=== PATIENT | female | born 1955 | race Caucasian/White ===

== ENCOUNTER 2017-09-03 12:41 | Inpatient (IN) | payer BC ==
[~2017-09-03] VITALS: Ht 172.7 cm; Wt 81.7 kg
[2017-09-03] MEDS ORDERED: FAMOTIDINE 20 MG/2 ML IVP ONE (13:30)
[2017-09-03] MEDS ORDERED: SODIUM CHLORIDE FLUSH 10ML SYR IVF ONE (13:30)
[2017-09-03 14:25] LABS: HEMATOCRIT 45.9 % (34.6-47.8); HEMOGLOBIN 15.4 g/dL (11.7-16.4)
[2017-09-03 14:34] LABS: BLOOD UREA NITROGEN 18 mg/dL (7-18)
[2017-09-03 14:38] LABS: ASPARTATE AMINO TRANSFERASE 14 U/L (15-37)
[2017-09-03 14:51] LABS: IS PT STATUS REG ER OR PRE ER? YES
[2017-09-03] MEDS ORDERED: POTASSIUM CHLORIDE 40 MEQ in SODIUM CHLORIDE 0.9% 500 ML IV ONE (15:30)
[2017-09-03] MEDS ORDERED: OMNIPAQUE 350 MG/ML, 100ML BOTTLE ONE (16:11)
[2017-09-03] MEDS ORDERED: CEFTRIAXONE 1,000 MG in SODIUM CHLORIDE 0.9% 50 ML IV ONE (17:00)
[2017-09-03] MEDS ORDERED: SODIUM CHLORIDE 0.9% 1,000ML IVBOLUS ONE (17:00)
[2017-09-03] MEDS ORDERED: SODIUM CHLORIDE 0.9% 1,000 ML IV SCH (17:11)
[2017-09-03] MEDS ORDERED: POTASSIUM CHLORIDE 20 MEQ TAB.ER.PRT PO ONE ×2 (17:30→22:00)
[2017-09-03] MEDS ORDERED: LORazepam 2 MG/ML, 1ML IV PRN ×2 (17:30)
[2017-09-03] MEDS ORDERED: ONDANSETRON ODT 4 MG PO PRN (17:30)
[2017-09-03] MEDS ORDERED: ONDANSETRON 2MG/ML, 2ML IVPush PRN (17:30)
[2017-09-03] MEDS ORDERED: LABETALOL 5MG/ML, 20ML IVPush PRN (17:30)
[2017-09-03] MEDS ORDERED: CEFTRIAXONE 1,000 MG in SODIUM CHLORIDE 0.9% 50 ML IV SCH (17:30)
[2017-09-03] MEDS ORDERED: LORazepam 1MG TABLET PO PRN ×2 (17:30)
[2017-09-03] MEDS ORDERED: GUAIFENESIN/DM 200-20MG, 10ML UDC PO PRN (17:30)
[2017-09-03] MEDS ORDERED: LORazepam 0.5MG TABLET PO PRN (17:30)
[2017-09-03] MEDS ORDERED: morphine SULFATE 10 MG/ML, 1ML IVPush PRN (17:30)
[2017-09-03] MEDS ORDERED: POLYETHYLENE GLYCOL 17 GM PACKET PO PRN (17:30)
[2017-09-03] MEDS ORDERED: MAALOX/HYOSCYAMINE/LIDOCAINE 45 ML BTL PO ONE (18:00)
[2017-09-03 18:04] VITALS: BP 130/93
[2017-09-03 18:43] VITALS: BP 123/86
[2017-09-03 20:24] LABS: BLOOD UREA NITROGEN 15 mg/dL (7-18)
[2017-09-03] MEDS: POTASSIUM CHLORIDE 20 MEQ, MAGNESIUM SULFATE 1 GM, THIAMINE 100 MG, MVI ADULT 10 ML in ... IV SCH (20:45)
[2017-09-03] MEDS: LORazepam 2 MG/ML, 1ML IV PRN (20:46)
[2017-09-03] MEDS: ENOXAPARIN 40 MG/0.4 ML SQ SCH (20:46)
[2017-09-03 21:56] VITALS: BP 123/86
[2017-09-04 01:08] VITALS: BP 124/82
[2017-09-04] MEDS: LORazepam 2 MG/ML, 1ML IV PRN ×6 (01:17→23:43)
[2017-09-04] MEDS ORDERED: LORazepam 2 MG/ML, 1ML ONE ×2 (04:26→06:33)
[2017-09-04 07:53] VITALS: BP 119/80
[2017-09-04] MEDS ORDERED: MAGNESIUM SULFATE PMX 2GM/50ML 50 ML IV ONE (08:00)
[2017-09-04 08:52] LABS: HEMATOCRIT 40.4 % (34.6-47.8); HEMOGLOBIN 13.6 g/dL (11.7-16.4); WHITE BLOOD COUNT 9.2 x10^3/uL (3.4-10)
[2017-09-04] MEDS: FOLIC ACID 1 MG TABLET PO SCH (09:00)
[2017-09-04] MEDS: SENNA/DOCUSATE TABLET PO SCH (09:00)
[2017-09-04] MEDS: PANTOPRAZOLE 40 MG IV IVPush SCH (09:37)
[2017-09-04] MEDS ORDERED: CHLORDIAZEPOXIDE 5 MG CAPSULE PO PRN (11:00)
[2017-09-04] MEDS ORDERED: CHLORDIAZEPOXIDE 10 MG CAPSULE PO PRN (11:30)
[2017-09-04] MEDS ORDERED: CHLORDIAZEPOXIDE 10 MG CAPSULE PO ONE (12:00)
[2017-09-04 13:53] VITALS: BP 122/82
[2017-09-04] MEDS: CHLORDIAZEPOXIDE 5 MG CAPSULE PO SCH ×3 (16:00→21:00)
[2017-09-04] MEDS ORDERED: SODIUM CHLORIDE 0.9% 1,000 ML IV SCH (17:11)
[2017-09-04] MEDS ORDERED: CEFTRIAXONE PMX 1GM/50ML 50 ML IV SCH (17:30)
[2017-09-04] MEDS: POTASSIUM CHLORIDE 20 MEQ, MAGNESIUM SULFATE 1 GM, THIAMINE 100 MG, MVI ADULT 10 ML in ... IV SCH (18:22)
[2017-09-04] MEDS: ENOXAPARIN 40 MG/0.4 ML SQ SCH (20:00)
[2017-09-04 21:42] VITALS: BP 122/85
[2017-09-05] MEDS: LORazepam 2 MG/ML, 1ML IV PRN ×10 (00:52→22:35)
[2017-09-05 01:47] VITALS: BP 120/80
[2017-09-05 06:03] LABS: HEMATOCRIT 38.3 % (34.6-47.8); HEMOGLOBIN 12.9 g/dL (11.7-16.4); WHITE BLOOD COUNT 8.7 x10^3/uL (3.4-10)
[2017-09-05 06:35] LABS: ASPARTATE AMINO TRANSFERASE 9 U/L (15-37); BLOOD UREA NITROGEN 8 mg/dL (7-18)
[2017-09-05 07:38] VITALS: BP 126/84
[2017-09-05] MEDS: PANTOPRAZOLE 40 MG IV IVPush SCH (08:21)
[2017-09-05] MEDS: CHLORDIAZEPOXIDE 5 MG CAPSULE PO SCH ×3 (08:22→20:06)
[2017-09-05] MEDS: SENNA/DOCUSATE TABLET PO SCH (08:23)
[2017-09-05] MEDS: FOLIC ACID 1 MG TABLET PO SCH (08:24)
[2017-09-05] MEDS ORDERED: POTASSIUM CHLORIDE 20 MEQ TAB.ER.PRT PO ONE ×2 (10:30)
[2017-09-05] MEDS: NS + 20MEQ KCL 1,000 ML IV SCH ×2 (12:16→21:00)
[2017-09-05 12:39] VITALS: BP 115/74
[2017-09-05] MEDS: QUETIAPINE 25MG TABLET PO SCH ×2 (17:10→20:06)
[2017-09-05] MEDS ORDERED: SODIUM CHLORIDE 0.9% 1,000 ML IV SCH (17:11)
[2017-09-05 19:51] VITALS: BP 106/75
[2017-09-05] MEDS: ENOXAPARIN 40 MG/0.4 ML SQ SCH (20:05)
[2017-09-05] MEDS ORDERED: QUETIAPINE 25MG TABLET PO SCH (21:00)
[2017-09-06 04:21] VITALS: BP 129/83
[2017-09-06 06:40] VITALS: BP 112/72
[2017-09-06] MEDS: SENNA/DOCUSATE TABLET PO SCH (07:14)
[2017-09-06] MEDS: QUETIAPINE 25MG TABLET PO SCH ×2 (08:10→20:17)
[2017-09-06] MEDS: NS + 20MEQ KCL 1,000 ML IV SCH (08:10)
[2017-09-06] MEDS: CHLORDIAZEPOXIDE 5 MG CAPSULE PO SCH ×2 (08:10→20:17)
[2017-09-06] MEDS: PANTOPRAZOLE 40 MG IV IVPush SCH (08:10)
[2017-09-06] MEDS: HYDROcodone/APAP 5/325 TABLET PO PRN ×2 (08:25→17:06)
[2017-09-06 10:47] LABS: HEMATOCRIT 38.4 % (34.6-47.8); HEMOGLOBIN 12.8 g/dL (11.7-16.4); WHITE BLOOD COUNT 7.4 x10^3/uL (3.4-10)
[2017-09-06 10:54] LABS: BLOOD UREA NITROGEN 9 mg/dL (7-18)
[2017-09-06 10:58] LABS: ASPARTATE AMINO TRANSFERASE 12 U/L (15-37)
[2017-09-06] MEDS: SODIUM CHLORIDE 0.45% 1,000 ML IV SCH ×2 (11:40→20:23)
[2017-09-06 12:30] VITALS: BP 117/74
[2017-09-06] MEDS: ENOXAPARIN 40 MG/0.4 ML SQ SCH (20:17)
[2017-09-06 20:35] VITALS: BP 118/82
[2017-09-07] MEDS: HYDROcodone/APAP 5/325 TABLET PO PRN ×5 (00:31→19:50)
[2017-09-07 01:15] VITALS: BP 121/82
[2017-09-07 05:41] LABS: HEMATOCRIT 38.5 % (34.6-47.8); HEMOGLOBIN 12.9 g/dL (11.7-16.4)
[2017-09-07] MEDS: SODIUM CHLORIDE 0.45% 1,000 ML IV SCH ×2 (05:50→16:06)
[2017-09-07 06:00] LABS: ASPARTATE AMINO TRANSFERASE 9 U/L (15-37); BLOOD UREA NITROGEN 6 mg/dL (7-18)
[2017-09-07 06:48] VITALS: BP 114/76
[2017-09-07] MEDS: SENNA/DOCUSATE TABLET PO SCH ×2 (08:15→08:18)
[2017-09-07] MEDS: PANTOPRAZOLE 40 MG IV IVPush SCH (08:15)
[2017-09-07] MEDS: CHLORDIAZEPOXIDE 5 MG CAPSULE PO SCH (08:15)
[2017-09-07] MEDS: QUETIAPINE 25MG TABLET PO SCH ×2 (08:15→19:50)
[2017-09-07 12:26] VITALS: BP 128/82
[2017-09-07] MEDS: ENOXAPARIN 40 MG/0.4 ML SQ SCH (19:49)
[2017-09-07 20:00] VITALS: BP 110/74
[2017-09-08 02:00] VITALS: BP 113/75
[2017-09-08 05:19] LABS: HEMATOCRIT 38.9 % (34.6-47.8); HEMOGLOBIN 13.2 g/dL (11.7-16.4); WHITE BLOOD COUNT 6.3 x10^3/uL (3.4-10)
[2017-09-08] MEDS: HYDROcodone/APAP 5/325 TABLET PO PRN ×4 (05:19→21:47)
[2017-09-08 05:29] LABS: BLOOD UREA NITROGEN 6 mg/dL (7-18)
[2017-09-08 06:45] VITALS: BP 115/78
[2017-09-08] MEDS: PANTOPRAZOLE 40 MG IV IVPush SCH (07:58)
[2017-09-08] MEDS: SENNA/DOCUSATE TABLET PO SCH (07:58)
[2017-09-08] MEDS: QUETIAPINE 25MG TABLET PO SCH ×2 (07:58→21:47)
[2017-09-08] MEDS ORDERED: POTASSIUM CHLORIDE 20 MEQ TAB.ER.PRT PO ONE ×2 (08:30→19:00)
[2017-09-08] MEDS ORDERED: MAGNESIUM SULFATE PMX 2GM/50ML 50 ML IV ONE ×2 (08:30→19:00)
[2017-09-08] MEDS ORDERED: CHLORDIAZEPOXIDE 5 MG CAPSULE PO SCH (09:00)
[2017-09-08] MEDS: SODIUM CHLORIDE 0.45% 1,000 ML IV SCH ×2 (09:35→21:47)
[2017-09-08] MEDS ORDERED: SODIUM CHLORIDE 0.45% 1,000 ML IV SCH (11:30)
[2017-09-08 12:30] VITALS: BP 99/65
[2017-09-08 20:33] VITALS: BP 118/81
[2017-09-08] MEDS: ENOXAPARIN 40 MG/0.4 ML SQ SCH (21:47)
[2017-09-09 03:25] VITALS: BP 119/87
[2017-09-09] MEDS: HYDROcodone/APAP 5/325 TABLET PO PRN ×5 (03:37→23:10)
[2017-09-09 05:18] LABS: HEMATOCRIT 37.2 % (34.6-47.8); HEMOGLOBIN 12.5 g/dL (11.7-16.4); WHITE BLOOD COUNT 4.5 x10^3/uL (3.4-10)
[2017-09-09 05:20] LABS: BLOOD UREA NITROGEN 5 mg/dL (7-18)
[2017-09-09 05:26] LABS: ASPARTATE AMINO TRANSFERASE 16 U/L (15-37)
[2017-09-09] MEDS: SENNA/DOCUSATE TABLET PO SCH (08:12)
[2017-09-09] MEDS: QUETIAPINE 25MG TABLET PO SCH ×2 (08:13→20:06)
[2017-09-09 08:23] VITALS: BP 120/84
[2017-09-09 12:08] VITALS: BP 100/67
[2017-09-09] MEDS: SODIUM CHLORIDE 0.9% 1,000 ML IV SCH (16:34)
[2017-09-09 18:48] VITALS: BP 148/93
[2017-09-09] MEDS: ENOXAPARIN 40 MG/0.4 ML SQ SCH (20:05)
[2017-09-10 01:45] VITALS: BP 124/85
[2017-09-10] MEDS: SODIUM CHLORIDE 0.9% 1,000 ML IV SCH (05:04)
[2017-09-10] MEDS: QUETIAPINE 25MG TABLET PO SCH (07:37)
[2017-09-10] MEDS: HYDROcodone/APAP 5/325 TABLET PO PRN (07:37)
[2017-09-10] MEDS: SENNA/DOCUSATE TABLET PO SCH (07:38)
[2017-09-10 08:45] VITALS: BP 116/80
[2017-09-10] MEDS ORDERED: THIA100T10 PO (09:09)
[2017-09-10] MEDS ORDERED: FOLI-17 PO (09:09)
[2017-09-10 09:39] LABS: BLOOD UREA NITROGEN 5 mg/dL (7-18)
[2017-09-10 09:42] LABS: ASPARTATE AMINO TRANSFERASE 39 U/L (15-37)
[2017-09-10 09:50] LABS: HEMATOCRIT 39.9 % (34.6-47.8); HEMOGLOBIN 13.4 g/dL (11.7-16.4); WHITE BLOOD COUNT 4.2 x10^3/uL (3.4-10)
[2017-09-10 10:19] LABS: DIFF TOTAL CELLS COUNTED 100 CELL DIFF
[2017-09-10 10:24] LABS: VERIFY COUNTS? YES
[2017-09-14 14:07] LABS: COMPLEMENT C3 154 mg/dL (82-167); COMPLEMENT C4 30 mg/dL (14-44); INTERMYOFIBRILLAR AB Negative (Neg:<1:20); MITOCHONDRIAL (M2) AB 18.9 Units (0.0-20.0); PARIETAL CELL AB 3.2 Units (0.0-20.0); RA LATEX TURBIDITY <10.0 IU/mL (0.0-13.9); SARCOLEMMA AB Negative (Neg:<1:20); STRIATION AB Negative (Neg:<1:40); THYROID PEROXIDASE (TPO) AB 13 IU/mL (0-34)
== END 2017-09-10 13:16 | disposition home or self-care (01) | DRG 439 ==
LOC: ED 15:00 → EDIP 16:38 → 4WST 17:52 → 4EST 09-04 03:08 → DCLOUNGE 09-10 13:00
PROVIDERS: ADMIT Internal Medicine; ATTEND Internal Medicine
DX: K85.90 Acute pancreatitis without necrosis or infection, unspecified (principal); E87.1 Hypo-osmolality and hyponatremia; N39.0 Urinary tract infection, site not specified; F10.239 Alcohol dependence with withdrawal, unspecified; D75.89 Other specified diseases of blood and blood-forming organs; E87.6 Hypokalemia; Z80.3 Family history of malignant neoplasm of breast; Z87.891 Personal history of nicotine dependence; Y90.9 Presence of alcohol in blood, level not specified; F10.229 Alcohol dependence with intoxication, unspecified
CPT/HCPCS: 36415; 70450; 74177; 76700; 80048; 80053; 81001; 82140; 82607; 82746; 82787; 83516; 83690; 83735; 84484; 85025; 85610; 85730; 86038; 86160; 86225; 86235; 86255; 86256; 86376; 86431; 87040; 87086; 87324; 93005; 96365; J0696; J1650; J3411; J3475; J3480; J7042; Q9967; C9113; J2060; J7030; J7040

== ENCOUNTER → 2020-11-01 | Outpatient (CLI) | payer BC ==
[~2020-11-01] MED LIST: FOLI-17 PO; THIA100T10 PO
== END | disposition home or self-care (01) ==
LOC: RAD 14:40
PROVIDERS: ATTEND Family Medicine
DX: M79.605 Pain in left leg (principal); R22.42 Localized swelling, mass and lump, left lower limb